=== PATIENT | female | born 1995 | race Caucasian/White ===

== ENCOUNTER 2016-12-01 17:46 | Emergency (ER) | payer MEDICAID, SELFPAY ==
[~2016-12-01 17:46] MED LIST: PRENTAB9 PO
[2016-12-01] MEDS ORDERED: AMOXICILLIN 250 MG CAP As Ordered ONE (19:37)
[2016-12-01] MEDS ORDERED: NORCO 5/325MG TABLET (BULK) As Ordered ONE (19:37)
--- NOTE | 2016-12-01 19:46 | EDDOCDS ---
Physician Documentation [facility] Name: Roxanne Palmer Age: 21 yrs Sex: Female : 1995 Arrival Date: 12/01/2016 Time: 17:46 Bed Triage 3 Private MD: No Pcp Disposition: 12/01/16 19:34 Discharged to Home/Self Care. Impression: Arrested dental caries. - Condition is Stable. - Discharge Instructions: Dental Abscess, Dental Pain. - Prescriptions for Amoxicillin 500 mg Oral Capsule - take 1 capsule by ORAL route every 8 hours for 10 days; 30 tablet. [place] 5- 325 mg Oral Tablet - take 1 tablet by ORAL route every 6 hours As needed MDD: 4 tabs; 12 tablet. - Medication Reconciliation, Local Pharmacy Hours form. - Follow up: Private Physician; When: Call to arrange an appointment; Reason: Recheck today's complaints, Continuance of care. Follow up: Tarik Merida MD; When: Call to arrange an appointment; Reason: Recheck today's complaints, Continuance of care. - Problem is an ongoing problem. - Symptoms are unchanged. Historical: - Allergies: No known drug Allergies; - Home Meds: 1. none - PMHx: concussion; - PSHx: none; - Social history: Smoking status: Patient uses tobacco products, light tobacco smoker. No barriers to communication noted, The patient speaks fluent Bengali, Speaks appropriately for age. - Family history: Not pertinent. - : The pt / caregiver states he / she is not on anticoagulants. Home medication list is obtained from the patient. - Exposure Risk Screening:: None identified. 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 3 in. (160.02 cm) (R); Pain 8/10; 17:49 Body Mass Index 21.26 (54.43 kg, 160.02 cm) gr2 MDM: 19:28 HYDROcodone-acetaminophen 4 pack- 5 mg-325 mg 1 packets PO Per package directions; mo1 Dispense with patient. 1 po q4h prn for pain ordered. 19:28 Amoxicillin 500 mg PO once ordered. mo1 19:42 Amoxicillin 500 mg PO once ordered. ttb Administered Medications: 19:41 Drug: HYDROcodone-acetaminophen 4 pack- 1 packets [hydrocodone 5 mg-acetaminophen 325 ttb mg tablet (1 tabs)] {Co-Signature: kmg1 (Chrystal Roblero RN).} Route: PO; 19:44 Follow up: Response: Med's dispensed home ttb 19:42 Drug: Amoxicillin 500 mg [amoxicillin 250 mg capsule (2 caps)] Route: PO; ttb Signatures: Smiley Ann RN RN hs1 Latanya Garcia RN RN ttb Yefri Ramirez PA PA mo1 Chrystal Roblero RN kmg1 MTDD
--- NOTE | 2016-12-01 19:46 | EDDOCDS ---
Nurse's Notes [facility] Name: Roxanne Palmer Age: 21 yrs Sex: Female : 1995 Arrival Date: 12/01/2016 Time: 17:46 Bed Triage 3 Private MD: No Pcp Diagnosis: Arrested dental caries Presentation: 12/01 17:52 Presenting complaint: Patient states: dentist called and stated that patient needed to hs1 come in and be seen for infection in tooth now spreading to down neck. Patient states left side of face and neck bothersome. Adult Sepsis Screening: The patient does not have new or worsening altered mentation. Patient's respiratory rate is less than 22. Systolic blood pressure is greater than 100. Patient has a qSOFA score of 0- Negative Sepsis Screen. Suicide/Homicide risk assessment- the patient denies having any suicidal and/or homicidal ideations and does not present with any other emotional, behavioral or mental health complaints. Status: Patient is not a park services specialist or dependent. Transition of care: patient was not received from another setting of care. 17:52 Method Of Arrival: Walkin/Carried/Asstd hs1 17:52 Acuity: MAXIMO Level 4 hs1 Triage Assessment: 17:54 General: Appears in no apparent distress, Behavior is anxious, cooperative. Pain: hs1 Location: mouth, chin and left jaw Pain currently is 8 out of 10 on a pain scale. Pain: Quality of pain is described as throbbing. HIV screening NA for this visit Offered previously. 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 none - PMHx: concussion; - PSHx: none; - Social history: Smoking status: Patient uses tobacco products, light tobacco smoker. No barriers to communication noted, The patient speaks fluent Sami, Speaks appropriately for age. - Family history: Not pertinent. - : The pt / caregiver states he / she is not on anticoagulants. Home medication list is obtained from the patient. - Exposure Risk Screening:: None identified. Screenin:42 Screening information is obtained from the patient. Fall risk: No risks identified. ttb Assistance ADL's: requires no assistance with activities of daily living. Abuse/DV Screen: The patient / caregiver reports he/she is: not in a situation that causes fear, pain or injury. Nutritional screening: No deficits noted. Advance Directives: Currently, there is no health care proxy. home support is adequate. Assessment: 19:42 General: Appears uncomfortable, well nourished, well groomed, Behavior is appropriate ttb for age, cooperative, crying, pleasant. Neurological: Level of Consciousness is awake, alert. Respiratory: Airway is patent Respiratory effort is even, unlabored, Denies labored breathing. Derm: Skin is normal. Vital Signs: 17:49 BP 129 / 90; Pulse 94; Resp 18 S; Temp 98.5(O); Pulse Ox 100% on R/A; Weight 54.43 kg gr2 (R); Height 5 ft. 3 in. (160.02 cm) (R); Pain 8/10; 17:49 Body Mass Index 21.26 (54.43 kg, 160.02 cm) gr2 Vitals: 17:49 Log In Time: December 01, 2016 at 17:49. gr2 ED Course: 17:48 Patient visited by Ayden Randall. gr2 17:48 Patient moved to Waiting gr2 17:49 No Pcp is Private Physician. gr2 17:51 Patient visited by Ayden Randall. gr2 17:51 Patient moved to Pre RCE gr2 17:53 Triage Initiated hs1 19:03 Patient moved to Triage 3 mlb1 19:15 Yefri Ramirez PA is PHCP. mo1 19:15 Kaley Keating MD is Attending Physician. mo1 19:21 Patient visited by Yefri Ramirez PA. mo1 19:35 Tarik Merida MD is Referral Physician. mo1 19:42 The patient / caregiver is instructed regarding the plan of care and ED course. ttb Accompanied by Family Member, Patient has correct armband on for positive identification. 19:42 No IV's were initiated during this patient's visit. No procedures done that require ttb assistance. Administered Medications: 19:41 Drug: HYDROcodone-acetaminophen 4 pack- 1 packets [hydrocodone 5 mg-acetaminophen 325 ttb mg tablet (1 tabs)] {Co-Signature: kmg1 (Chrystal Roblero RN).} Route: PO; 19:44 Follow up: Response: Med's dispensed home ttb 19:42 Drug: Amoxicillin 500 mg [amoxicillin 250 mg capsule (2 caps)] Route: PO; ttb Order Results: There are currently no results for this order. Outcome: 19:34 Discharge ordered by Provider. mo1 19:42 Discharge Assessment: Patient awake, alert and oriented x 3. No cognitive and/or ttb functional deficits noted. Patient verbalized understanding of disposition instructions. Patient awake and alert. patient administered narcotics - no. The following High Risk Discharge criteria are identified: None. Discharged to home ambulatory, with family. Condition: good Condition: stable Condition: improved. Discharge instructions given to patient, family, Instructed on discharge instructions, follow up and referral plans. medication usage, no driving heavy equipment, no drinking with medication, Demonstrated understanding of instructions, medications, Pt was receptive of discharge instructions/ teaching. Prescriptions given X 2, meds dispensed as well. No special radiology studies were completed. Property :Personal belongings accompany Pt. 19:44 Patient left the ED. ttb Signatures: Yefri James RN RN mlb1 Smiley Ann RN RN hs1 Latanya Garcia RN RN ttb Ayden Randall 2 Yefri Ramirez PA PA mo1 Chrystal Roblero RN kmg1 MTDD
--- NOTE | 2016-12-03 20:46 | EDDOCDS ---
Physician Documentation [facility] Name: Roxanne Palmer Age: 21 yrs Sex: Female : 1995 Arrival Date: 12/01/2016 Time: 17:46 Bed Triage 3 Private MD: No Pcp Disposition: 12/01/16 19:34 Discharged to Home/Self Care. Impression: Arrested dental caries. - Condition is Stable. - Discharge Instructions: Dental Abscess, Dental Pain. - Prescriptions for Amoxicillin 500 mg Oral Capsule - take 1 capsule by ORAL route every 8 hours for 10 days; 30 tablet. [place] 5- 325 mg Oral Tablet - take 1 tablet by ORAL route every 6 hours As needed MDD: 4 tabs; 12 tablet. - Medication Reconciliation, Local Pharmacy Hours form. - Follow up: Private Physician; When: Call to arrange an appointment; Reason: Recheck today's complaints, Continuance of care. Follow up: Tarik Merida MD; When: Call to arrange an appointment; Reason: Recheck today's complaints, Continuance of care. - Problem is an ongoing problem. - Symptoms are unchanged. Historical: - Allergies: No known drug Allergies; - Home Meds: 1. none - PMHx: concussion; - PSHx: none; - Social history: Smoking status: Patient uses tobacco products, light tobacco smoker. No barriers to communication noted, The patient speaks fluent Belarusian, Speaks appropriately for age. - Family history: Not pertinent. - : The pt / caregiver states he / she is not on anticoagulants. Home medication list is obtained from the patient. - Exposure Risk Screening:: None identified. 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 3 in. (160.02 cm) (R); Pain 8/10; 17:49 Body Mass Index 21.26 (54.43 kg, 160.02 cm) gr2 MDM: 19:28 HYDROcodone-acetaminophen 4 pack- 5 mg-325 mg 1 packets PO Per package directions; mo1 Dispense with patient. 1 po q4h prn for pain ordered. 19:28 Amoxicillin 500 mg PO once ordered. mo1 19:42 Amoxicillin 500 mg PO once ordered. ttb 19:46 [facility] Payment Agreement was scanned into [employer] and attached to record. zo 19:46 Financial registration complete. zo 12/02 09:22 T-Sheet-- Draft Copy was scanned into [employer] and attached to record. gb Administered Medications: 12/01 19:41 Drug: HYDROcodone-acetaminophen 4 pack- 1 packets [hydrocodone 5 mg-acetaminophen 325 ttb mg tablet (1 tabs)] {Co-Signature: kmg1 (Chrystal Roblero RN).} Route: PO; 19:44 Follow up: Response: Med's dispensed home ttb 19:42 Drug: Amoxicillin 500 mg [amoxicillin 250 mg capsule (2 caps)] Route: PO; ttb Signatures: Tsering Ferguson, Marvel Reg Jarrod Pascal Hannah, RN RN hs1 Latanya Garcia RN RN ttb Yefri Ramirez PA PA mo1 Chrystal Roblero RN kmg1 The chart was reviewed and I authenticate all verbal orders and agree with the evaluation and treatment provided.Attachments: 19:46 [facility] Payment Agreement zo 12/02 09:22 T-Sheet-- Draft Copy gb Chart Complete MTDD
--- NOTE | 2016-12-03 20:46 | EDDOCDS ---
Physician Documentation [facility] Name: Roxanne Palmer Age: 21 yrs Sex: Female : 1995 Arrival Date: 12/01/2016 Time: 17:46 Bed Triage 3 Private MD: No Pcp Disposition: 12/01/16 19:34 Discharged to Home/Self Care. Impression: Arrested dental caries. - Condition is Stable. - Discharge Instructions: Dental Abscess, Dental Pain. - Prescriptions for Amoxicillin 500 mg Oral Capsule - take 1 capsule by ORAL route every 8 hours for 10 days; 30 tablet. [place] 5- 325 mg Oral Tablet - take 1 tablet by ORAL route every 6 hours As needed MDD: 4 tabs; 12 tablet. - Medication Reconciliation, Local Pharmacy Hours form. - Follow up: Private Physician; When: Call to arrange an appointment; Reason: Recheck today's complaints, Continuance of care. Follow up: Tarik Merida MD; When: Call to arrange an appointment; Reason: Recheck today's complaints, Continuance of care. - Problem is an ongoing problem. - Symptoms are unchanged. Historical: - Allergies: No known drug Allergies; - Home Meds: 1. none - PMHx: concussion; - PSHx: none; - Social history: Smoking status: Patient uses tobacco products, light tobacco smoker. No barriers to communication noted, The patient speaks fluent Latvian, Speaks appropriately for age. - Family history: Not pertinent. - : The pt / caregiver states he / she is not on anticoagulants. Home medication list is obtained from the patient. - Exposure Risk Screening:: None identified. 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 3 in. (160.02 cm) (R); Pain 8/10; 17:49 Body Mass Index 21.26 (54.43 kg, 160.02 cm) gr2 MDM: 19:28 HYDROcodone-acetaminophen 4 pack- 5 mg-325 mg 1 packets PO Per package directions; mo1 Dispense with patient. 1 po q4h prn for pain ordered. 19:28 Amoxicillin 500 mg PO once ordered. mo1 19:42 Amoxicillin 500 mg PO once ordered. ttb 19:46 [facility] Payment Agreement was scanned into [employer] and attached to record. zo 19:46 Financial registration complete. zo 12/02 09:22 T-Sheet-- Draft Copy was scanned into [employer] and attached to record. gb Administered Medications: 12/01 19:41 Drug: HYDROcodone-acetaminophen 4 pack- 1 packets [hydrocodone 5 mg-acetaminophen 325 ttb mg tablet (1 tabs)] {Co-Signature: kmg1 (Chrystal Roblero RN).} Route: PO; 19:44 Follow up: Response: Med's dispensed home ttb 19:42 Drug: Amoxicillin 500 mg [amoxicillin 250 mg capsule (2 caps)] Route: PO; ttb Signatures: Tsering Ferguson, Marvel Reg Jarrod Pascal Hannah, RN RN hs1 Latanya Garcia RN RN ttb Yefri Ramirez PA PA mo1 Chrystal Roblero RN kmg1 The chart was reviewed and I authenticate all verbal orders and agree with the evaluation and treatment provided.Attachments: 19:46 [facility] Payment Agreement zo 12/02 09:22 T-Sheet-- Draft Copy gb Chart Complete MTDD
== END 2016-12-01 19:44 | disposition home or self-care (01) ==
LOC: M ED 17:46
DX: K04.7 Periapical abscess without sinus (principal); K13.79 Other lesions of oral mucosa; R22.0 Localized swelling, mass and lump, head; F17.210 Nicotine dependence, cigarettes, uncomplicated

== ENCOUNTER 2017-03-04 22:18 | Emergency (ER) | payer MEDICAID, SELFPAY ==
[2017-03-05 01:27] LABS: METHADONE URINE NEGATIVE (NEGATIVE)
== END 2017-03-05 | disposition left against medical advice (07) ==
LOC: EDSEX 22:18 → EDBD 22:18 → M ED 03-05 01:08
DX: S00.91XA Abrasion of unspecified part of head, initial encounter (principal); Y04.8XXA Assault by other bodily force, initial encounter; Y92.89 Other specified places as the place of occurrence of the external cause; Y93.89 Activity, other specified; Y99.8 Other external cause status

== ENCOUNTER 2017-03-05 13:26 | Emergency (ER) | payer OTHER, SELFPAY ==
[~2017-03-05] VITALS: Ht 157.5 cm; Wt 56.7 kg
[2017-03-05 14:49] LABS: BASO % 0.3 % (0.0-1.0); EOS # 0.2 K/mm3 (0.0-0.50); LARGE UNSTAINED CELL # 0.1 K/mm3 (0.0-0.4); LARGE UNSTAINED CELL % 1.8 % (0.0-4.0); LYMPH # 1.3 K/mm3 (1.5-6.5); LYMPH % 31.9 % (24.0-44.0); MEAN CORPUSCULAR HEMOGLOBIN 26.8 pg (27.0-33.0); MEAN CORPUSCULAR HGB CONC 31.7 g/dl (32.0-36.5); MEAN CORPUSCULAR VOLUME 84.5 fl (80.0-96.0); MONO # 0.3 K/mm3 (0.0-0.8); MONO % 8.1 % (0.0-5.0); NEUTROPHILS # 2.2 K/mm3 (1.8-7.7); NEUTROPHILS % 52.9 % (36.0-66.0); PLATELET COUNT, AUTOMATED 262 k/mm3 (150-450); RED CELL DISTRIBUTION WIDTH 15.4 % (11.5-14.5); WHITE BLOOD COUNT 4.1 K/mm3 (4.0-10.0)
[2017-03-05 15:03] LABS: CONTROL LINE HCG INT CTR LINE PRESENT
[2017-03-05 15:12] LABS: ALBUMIN 4.3 GM/DL (3.2-5.2); ALBUMIN/GLOBULIN RATIO 1.43 (1.00-1.93); ALKALINE PHOSPHATASE 56 U/L (45-117); ALT/SGPT 24 U/L (12-78); ANION GAP 8 MEQ/L (8-16); AST/SGOT 24 U/L (15-37); BILIRUBIN,TOTAL 0.8 MG/DL (0.2-1.0); BLOOD UREA NITROGEN 12 MG/DL (7-18); CALCIUM LEVEL 8.6 MG/DL (8.5-10.1); CARBON DIOXIDE LEVEL 27 MEQ/L (21-32); CHLORIDE LEVEL 108 MEQ/L (98-107); CREATININE FOR GFR 0.82 MG/DL (0.55-1.02); GLOMERULAR FILTRATION RATE > 60.0 (>60); GLUCOSE, FASTING 74 MG/DL (70-105); POTASSIUM SERUM 4.3 MEQ/L (3.5-5.1); SODIUM LEVEL 143 MEQ/L (136-145); TOTAL PROTEIN 7.3 GM/DL (6.4-8.2)
[2017-03-05 15:27] LABS: CONTROL LINE INT CTR LINE PRESENT; HIV SCRN NEGATIVE (NEGATIVE); HIV SCRN1 NEGATIVE (NEGATIVE)
[2017-03-05] MEDS ORDERED: TETANUS IMMUNE GLOBULIN (HUMAN) 250 UNITS/ML SYRINGE (J1670)(90389) IM ONE (16:00)
[2017-03-05] MEDS ORDERED: cefTRIAXone SOD 250 MG VIAL (J0696) IM ONE (16:00)
[2017-03-05] MEDS ORDERED: AZITHROMYCIN 250 MG TAB PO ONE (16:00)
[2017-03-05] MEDS ORDERED: metroNIDAZOLE (FLAGYL) 500 MG TAB PO ONE (16:00)
[2017-03-05] MEDS ORDERED: EXPOSURE KIT-ADULT 7 DAY SUPPLY PO ONE (16:00)
[2017-03-05] MEDS ORDERED: DOXYCYCLINE HYCLATE 100 MG TAB PO ONE (16:00)
[2017-03-05] MEDS ORDERED: [UNRECOGNIZED DRUG - OTHER] IM ONE (16:00)
[2017-03-05] MEDS ORDERED: OVRAL-28 TABLET PO ONE (16:30)
[2017-03-05] MEDS ORDERED: ISOVUE-370 76% 100ML VIAL (Q9967) As Ordered ONE (16:38)
[2017-03-05] MEDS ORDERED: ONDANSETRON 4MG/2ML VIAL (J2405) IV ONE (16:45)
--- NOTE | 2017-03-05 17:40 | REPUSA ---
CLINICAL HISTORY: Abdominal pain. TECHNIQUE: Multiple axial, sagittal and coronal CT images were obtained through the abdomen and pelvi s after administration of intravenous contrast material. COMMENTS: The liver is of uniform attenuation without mass or defect. There is no intra or extrahepatic biliary ductal dilatation. The spleen is normal. The gallbladder is within normal limits. The pancreas is of normal contour and attenuation characteristics. There is no evidence of adrenal mass. Both kidneys demonstrate prompt and equal nephrograms. The kidneys are normal in size, shape and conf iguration. There is no evidence of renal or ureteral mass. No renal or ureteral calculi are identifie d. There is no hydroureter or hydronephrosis. No evidence for appendicitis. There is wall thickening noted involving duodenum and jejunum compati ble wiith enteritis. No evidence for small or large bowel obstruction. There is no evidence of abdomi nal ascites or lymphadenopathy. There is no evidence of intrinsic or extrinsic bladder mass. There is no pelvic ascites or lymphadeno quin. 15 mm right ovarian cyst is seen. The uterus and left ovary are unremarkable. Images of the lung bases show no evidence of pleural or parenchymal mass. There are no pleural effusi ons. The bony structures are free of lytic or blastic lesions. IMPRESSION: Enteritis as above. Infectious and inflammatory etiologies are considered. Consider GI consult. 15 mm right ovarian cyst. Thank you for your kind referral of this patient.
[2017-03-05 18:58] VITALS: BP 98/63
--- NOTE | 2017-03-06 06:45 | REP ---
CT BRAIN WITHOUT CONTRAST: CT brain is performed without IV contrast. Ventricles are normal in size and position. There is no midline shift. No abnormal densities are seen. Aguayo-white differentiation is well maintained. There is no acute hemorrhage. There is no extra-axial fluid collection. No skull fracture is seen. IMPRESSION: Negative noncontrast CT brain. Signed by Charles Aguayo MD 03/06/2017 07:49 P
--- NOTE | 2017-03-06 07:22 | REP ---
LUMBOSACRAL SPINE: Two views of the lumbosacral spine are performed in the AP and lateral projections. There is no compression fracture or malalignment with normal lumbar lordosis. Disc spaces are well preserved. Posterior elements are intact. IMPRESSION: No evidence of fracture or dislocation. Signed by Charles Aguayo MD 03/06/2017 07:51 P
--- NOTE | 2017-03-06 07:24 | REP ---
RIGHT HIP, TWO VIEWS: There is no evidence of an acute fracture, dislocation or intrinsic bone disease. IMPRESSION: No fracture or dislocation. Signed by Charles Aguayo MD 03/06/2017 07:51 P
--- NOTE | 2017-03-06 07:26 | REP ---
CERVICAL SPINE, TWO VIEWS: AP and lateral views of the cervical spine are performed and demonstrate no definite fracture or dislocation. Vertebral bodies are normal in height and are well aligned. There is no prevertebral soft tissue swelling. Disc spaces are well preserved. IMPRESSION: Grossly no fracture or dislocation. However, if there is clinical concern for cervical spine fracture, I would recommend a CT of the cervical spine to rule out occult fracture. Signed by Charles Aguayo MD 03/06/2017 07:51 P
[2017-03-07 10:26] LABS: HEPATITIS B SURFACE ANTIBODY NEGATIVE (POSITIVE)
== END 2017-03-05 19:39 | disposition home or self-care (01) ==
LOC: M ED 14:44
DX: S00.91XA Abrasion of unspecified part of head, initial encounter (principal); S70.01XA Contusion of right hip, initial encounter; S30.810A Abrasion of lower back and pelvis, initial encounter; S70.319A Abrasion, unspecified thigh, initial encounter; S10.91XA Abrasion of unspecified part of neck, initial encounter; M54.5 Low back pain; Y04.8XXA Assault by other bodily force, initial encounter; Y92.89 Other specified places as the place of occurrence of the external cause; Y93.89 Activity, other specified; Y99.8 Other external cause status; F32.9 Major depressive disorder, single episode, unspecified; F17.200 Nicotine dependence, unspecified, uncomplicated
CPT/HCPCS: 70450; 72040; 72100; 73502; 74177; 80053; 84703; 85025; 86706; 86780; 86803; 87070; 87210; 87340; 87491; 87591; 87806; 90471; 90472; 90744; 96372; 96374; 99282; J0696; J1670; J2405; Q9967

== ENCOUNTER → 2017-07-08 | Outpatient (REF) | LOC: M LAB 10:15 | PROVIDERS: ATTEND Nurse Practitioner Adult Health | DX: Z02.89 Encounter for other administrative examinations (principal) ==

== ENCOUNTER 2017-07-30 01:56 | Emergency (ER) | payer OTHER ==
[2017-07-30] MEDS ORDERED: NALOXONE INJ 2 MG/2 ML SYRINGE (J2310) IV STA (02:25)
[2017-07-30] MEDS ORDERED: NALOXONE INJ 2 MG/2 ML SYRINGE (J2310) As Ordered ONE (02:28)
[2017-07-30 02:46] LABS: ABG HCO3 19.3 MEQ/L (22.0-26.0); ABG PARTIAL PRESSURE CO2 33.4 mmHg (35.0-45.0); ABG STANDARD HCO3 20.3 MEQ/L (22.0-26.0); ABG TOTAL CO2 20.3 MEQ/L (22.0-29.0); ABG pH (ARTERIAL) 7.379 UNITS (7.350-7.450)
[2017-07-30 02:47] LABS: ANION GAP 7 MEQ/L (8-16); BLOOD UREA NITROGEN 5 MG/DL (7-18); CALCIUM LEVEL 8.6 MG/DL (8.5-10.1); CARBON DIOXIDE LEVEL 27 MEQ/L (21-32); CHLORIDE LEVEL 113 MEQ/L (98-107); CREATININE FOR GFR 0.68 MG/DL (0.55-1.02); GLOMERULAR FILTRATION RATE > 60.0 (>60); GLUCOSE, FASTING 88 MG/DL (70-105); POTASSIUM SERUM 3.9 MEQ/L (3.5-5.1); SODIUM LEVEL 147 MEQ/L (136-145)
[2017-07-30 03:52] LABS: METHADONE URINE NEGATIVE (NEGATIVE)
[2017-07-30 05:42] VITALS: BP 93/55
--- NOTE | 2017-07-31 12:34 | ECGEPIP ---
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
== END 2017-07-30 06:06 | disposition home or self-care (01) ==
LOC: M ED 01:56
DX: F10.929 Alcohol use, unspecified with intoxication, unspecified (principal); F12.10 Cannabis abuse, uncomplicated
CPT/HCPCS: 51701; 80048; 80307; 80320; 80329; 82803; 93000; 96374; 99285; J2310

== ENCOUNTER 2017-12-15 00:39 | Emergency (ER) | payer SELFPAY, OTHER ==
[2017-12-15 01:31] LABS: HEMATOCRIT 39.9 % (36.0-47.0); MEAN CORPUSCULAR HEMOGLOBIN 27.2 pg (27.0-33.0); MEAN CORPUSCULAR HGB CONC 32.6 g/dl (32.0-36.5); MEAN CORPUSCULAR VOLUME 83.5 fl (80.0-96.0); PLATELET COUNT, AUTOMATED 294 10^3/uL (150-450); RED BLOOD COUNT 4.78 10^6/uL (4.00-5.40); RED CELL DISTRIBUTION WIDTH 15.6 % (11.5-14.5); WHITE BLOOD COUNT 6.7 10^3/uL (4.0-10.0)
[2017-12-15 01:51] LABS: AMPHETAMINES LEVEL URINE NEGATIVE (NEGATIVE); BARBITURATES URINE NEGATIVE (NEGATIVE); BENZODIAZEPINES URINE NEGATIVE (NEGATIVE); CANNABINOIDS URINE POSITIVE (NEGATIVE); COCAINE METABOLITE URINE NEGATIVE (NEGATIVE); METHADONE URINE NEGATIVE (NEGATIVE); OPIATES URINE NEGATIVE (NEGATIVE); PHENCYCLIDINE URINE NEGATIVE (NEGATIVE)
[2017-12-15] MEDS: diphenhydrAMINE INJ 50MG/ML VIAL (J1200) IM (02:00)
[2017-12-15] MEDS: LORazepam 2 MG/ML VIAL (J2060) IM (02:00)
[2017-12-15] MEDS: HALOPERIDOL 5 MG/ML VIAL (J1630) IM (02:00)
[2017-12-15 03:06] LABS: ALBUMIN 4.5 GM/DL (3.2-5.2); ALBUMIN/GLOBULIN RATIO 1.36 (1.00-1.93); ALKALINE PHOSPHATASE 51 U/L (45-117); ALT/SGPT 18 U/L (12-78); ANION GAP 14 MEQ/L (8-16); AST/SGOT 19 U/L (7-37); BILIRUBIN,DIRECT < 0.1 MG/DL (0.0-0.2); BILIRUBIN,TOTAL 0.3 MG/DL (0.2-1.0); BLOOD UREA NITROGEN 5 MG/DL (7-18); CALCIUM LEVEL 8.9 MG/DL (8.5-10.1); CARBON DIOXIDE LEVEL 20 MEQ/L (21-32); CHLORIDE LEVEL 111 MEQ/L (98-107); CREATININE FOR GFR 0.78 MG/DL (0.55-1.30); ETHYL ALCOHOL (ETHANOL) 0.184 % (0.000-0.010); GLOMERULAR FILTRATION RATE > 60.0 (>60); GLUCOSE, FASTING 89 MG/DL (70-100); POTASSIUM SERUM 3.5 MEQ/L (3.5-5.1); SALICYLATE LEVEL < 1.7 MG/DL (5.0-30.0); SODIUM LEVEL 145 MEQ/L (136-145); THYROID STIMULATING HORMONE 0.947 uIU/ML (0.358-3.740); TOTAL PROTEIN 7.8 GM/DL (6.4-8.2)
[2017-12-15 03:07] LABS: ACETAMINOPHEN LEVEL < 2.0 UG/ML (10.0-30.0)
[2017-12-15 11:34] LABS: CONTROL LINE HCG INT CTR LINE PRESENT; HCG, SERUM QUALITATIVE NEGATIVE (NEGATIVE)
== END 2017-12-15 13:01 | disposition home or self-care (01) ==
LOC: M ED 00:39
DX: Z04.6 Encounter for general psychiatric examination, requested by authority (principal); F10.929 Alcohol use, unspecified with intoxication, unspecified
CPT/HCPCS: J1200

== ENCOUNTER 2018-04-08 15:50 | Emergency (ER) | payer SELFPAY ==
[2018-04-08 17:52] LABS: HEMATOCRIT 40.3 % (36.0-47.0); HEMOGLOBIN 13.2 g/dl (12.0-15.5); MEAN CORPUSCULAR HEMOGLOBIN 28.6 pg (27.0-33.0); MEAN CORPUSCULAR HGB CONC 32.8 g/dl (32.0-36.5); MEAN CORPUSCULAR VOLUME 87.4 fl (80.0-96.0); PLATELET COUNT, AUTOMATED 256 10^3/uL (150-450); RED BLOOD COUNT 4.61 10^6/uL (4.00-5.40); RED CELL DISTRIBUTION WIDTH 14.5 % (11.5-14.5)
[2018-04-08] MEDS: ONDANSETRON 4MG/2ML VIAL (J2405) IV (18:02)
[2018-04-08] MEDS: MORPHINE 2 MG/ML 1ML SYRINGE (J2270) IV ×2 (18:02→19:19)
[2018-04-08 18:12] LABS: ANION GAP 7 MEQ/L (8-16); BLOOD UREA NITROGEN 11 MG/DL (7-18); CALCIUM LEVEL 8.9 MG/DL (8.5-10.1); CARBON DIOXIDE LEVEL 27 MEQ/L (21-32); CHLORIDE LEVEL 108 MEQ/L (98-107); CREATININE FOR GFR 0.68 MG/DL (0.55-1.30); GLOMERULAR FILTRATION RATE > 60.0 (>60); GLUCOSE, FASTING 79 MG/DL (70-100); POTASSIUM SERUM 4.3 MEQ/L (3.5-5.1); SODIUM LEVEL 142 MEQ/L (136-145)
[2018-04-08] MEDS ORDERED: ISOVUE-370 76% 100ML VIAL (Q9967) As Ordered (18:19)
== END 2018-04-08 19:54 | disposition home or self-care (01) ==
LOC: M ED 15:50
DX: L03.211 Cellulitis of face (principal); F41.9 Anxiety disorder, unspecified; F33.9 Major depressive disorder, recurrent, unspecified; F17.210 Nicotine dependence, cigarettes, uncomplicated
CPT/HCPCS: J2405

== ENCOUNTER 2018-05-14 17:18 | Emergency (ER) | payer SELFPAY ==
[2018-05-14] MEDS: PENICILLIN V POTASSIUM 500 MG TAB PO (18:24)
[2018-05-14] MEDS: NORCO 5/325MG TABLET (BULK FOR ED) PO (18:24)
== END 2018-05-14 18:31 | disposition home or self-care (01) ==
LOC: M ED 17:18
DX: K04.7 Periapical abscess without sinus (principal); R68.84 Jaw pain; F17.200 Nicotine dependence, unspecified, uncomplicated
CPT/HCPCS: 99282

== ENCOUNTER 2018-08-18 14:26 | Emergency (ER) | payer SELFPAY | END 2018-08-18 16:14 | disposition home or self-care (01) | LOC: M ED 14:26 | DX: M25.531 Pain in right wrist (principal); F41.9 Anxiety disorder, unspecified; F32.9 Major depressive disorder, single episode, unspecified; F17.200 Nicotine dependence, unspecified, uncomplicated | CPT/HCPCS: 73110 ==

== ENCOUNTER 2018-09-01 19:31 | Emergency (ER) | payer SELFPAY ==
[2018-09-01 19:43] LABS: BEDSIDE GLUCOSE 71 MG/DL (70-105)
[2018-09-01] MEDS: DEXTROSE 50% 50 ML SYRINGE IV ×2 (19:43→20:58)
[2018-09-01] MEDS ORDERED: DEXTROSE 50% 50 ML SYRINGE As Ordered (19:43)
[2018-09-01] MEDS: GASTROGRAFIN SOLUTION 30ML PO ×2 (20:22→21:00)
[2018-09-01 20:27] LABS: BASO % 0.5 % (0.0-1.0); EOS # 0.2 10^3/uL (0.0-0.50); EOS % 2.4 % (0.0-3.0); HEMATOCRIT 37.6 % (36.0-47.0); HEMOGLOBIN 12.5 g/dl (12.0-15.5); IMMATURE GRANULOCYTE % 0.3 % (0-3.0); LYMPH # 2.1 10^3/uL (1.5-6.5); LYMPH % 28.1 % (24.0-44.0); MEAN CORPUSCULAR HEMOGLOBIN 29.3 pg (27.0-33.0); MEAN CORPUSCULAR HGB CONC 33.2 g/dl (32.0-36.5); MEAN CORPUSCULAR VOLUME 88.3 fl (80.0-96.0); MONO # 0.8 10^3/uL (0.0-0.8); NEUTROPHILS # 4.4 10^3/uL (1.8-7.7); NEUTROPHILS % 58.7 % (36.0-66.0); PLATELET COUNT, AUTOMATED 219 10^3/uL (150-450); RED BLOOD COUNT 4.26 10^6/uL (4.00-5.40); RED CELL DISTRIBUTION WIDTH 13.8 % (11.5-14.5); WHITE BLOOD COUNT 7.5 10^3/uL (4.0-10.0)
[2018-09-01 20:36] LABS: AMORPHOUS SEDIMENT RFX SMALL (NEGATIVE); KETONE, URINE AUTO RFX NEGATIVE (NEGATIVE); LEUKOCYTE ESTERASE UR AUTO RFX NEGATIVE (NEGATIVE); MUCUS, URINE RFX SMALL (NEGATIVE); NITRITE, URINE AUTO RFX NEGATIVE (NEGATIVE); RBC, URINE AUTO RFX 3 /HPF (0-3); SPECIFIC GRAVITY UR AUTO RFX 1.021 (1.002-1.035); SQUAM EPITHELIAL CELL UR AURFX 4 /HPF (0-6); WBC, URINE AUTO RFX 3 /HPF (0-3)
[2018-09-01 20:41] LABS: CONTROL LINE HCG INT CTR LINE PRESENT; HCG, SERUM QUALITATIVE NEGATIVE (NEGATIVE)
[2018-09-01 20:50] LABS: LACTIC ACID SEPSIS PROTOCOL 1.8 MMOL/L (0.4-2.0)
[2018-09-01 20:50] LABS: ALBUMIN 3.9 GM/DL (3.2-5.2); ALBUMIN/GLOBULIN RATIO 1.44 (1.00-1.93); ALKALINE PHOSPHATASE 42 U/L (45-117); ALT/SGPT 20 U/L (12-78); ANION GAP 8 MEQ/L (8-16); AST/SGOT 16 U/L (7-37); BILIRUBIN,DIRECT 0.2 MG/DL (0.0-0.2); BILIRUBIN,TOTAL 0.5 MG/DL (0.2-1.0); BLOOD UREA NITROGEN 11 MG/DL (7-18); CALCIUM LEVEL 8.5 MG/DL (8.5-10.1); CARBON DIOXIDE LEVEL 24 MEQ/L (21-32); CHLORIDE LEVEL 109 MEQ/L (98-107); CREATININE FOR GFR 0.73 MG/DL (0.55-1.30); ETHYL ALCOHOL (ETHANOL) < 0.003 % (0.000-0.010); GLOMERULAR FILTRATION RATE > 60.0 (>60); GLUCOSE, FASTING 59 MG/DL (70-100); LIPASE 395 U/L (73-393); POTASSIUM SERUM 3.9 MEQ/L (3.5-5.1); SODIUM LEVEL 141 MEQ/L (136-145); TOTAL PROTEIN 6.6 GM/DL (6.4-8.2)
[2018-09-01 20:52] LABS: BEDSIDE GLUCOSE 54 MG/DL (70-105)
[2018-09-01 20:54] LABS: BEDSIDE GLUCOSE 69 MG/DL (70-105)
[2018-09-01] MEDS: D5W/0.45% SODIUM CHLORIDE 1,000 ML IV (20:59)
[2018-09-01 21:07] LABS: AMPHETAMINES LEVEL URINE NEGATIVE (NEGATIVE); BARBITURATES URINE NEGATIVE (NEGATIVE); BENZODIAZEPINES URINE POSITIVE (NEGATIVE); CANNABINOIDS URINE POSITIVE (NEGATIVE); COCAINE METABOLITE URINE NEGATIVE (NEGATIVE); METHADONE URINE NEGATIVE (NEGATIVE); OPIATES URINE NEGATIVE (NEGATIVE); PHENCYCLIDINE URINE NEGATIVE (NEGATIVE)
[2018-09-01 21:41] LABS: BEDSIDE GLUCOSE 102 MG/DL (70-105)
[2018-09-01] MEDS ORDERED: ISOVUE-370 76% 100ML VIAL (Q9967) As Ordered (21:41)
[2018-09-01 21:57] LABS: ESTIMATED AVERAGE GLUCOSE 97 MG/DL (60-110)
[2018-09-01 23:03] LABS: BEDSIDE GLUCOSE 111 MG/DL (70-105)
[2018-09-01 23:53] LABS: BEDSIDE GLUCOSE 97 MG/DL (70-105)
== END 2018-09-02 00:25 | disposition home or self-care (01) ==
LOC: M ED 09-02 00:25
DX: F41.0 Panic disorder [episodic paroxysmal anxiety] (principal); E16.2 Hypoglycemia, unspecified; R11.2 Nausea with vomiting, unspecified
CPT/HCPCS: Q9963

== ENCOUNTER → 2018-12-27 | Outpatient (CLI) | payer OTHER ==
[~2018-12-27] MED LIST changes: +IBUP-1022 PO; +IBUP1TAB7 PO; +IBUP80TA PO; +KEFL500C17 PO; +NORCOTAB PO; +PENI500T PO; +ZOFR4TAB14 PO
--- NOTE | 2018-12-27 19:17 | REP ---
LEFT BREAST ULTRASOUND: Real time sonographic evaluation of the left breast was performed. Patient reports nipple discharge for 2 weeks which is clear to whitish in color. There is reportedly a palpable lump at 7 o'clock and 10 o'clock. Real-time sonographic evaluation of 7 and 10 o'clock regions demonstrate no cystic or solid nodule. The left retroareolar region is imaged as well. There are dilated ducts present with internal debris. No cystic or solid nodule is seen in that region. There is diffuse dense fibroglandular tissue. IMPRESSION: ACR 2 benign. No discrete cystic or solid mass in the left breast, particularly in the 7 o'clock and 10 o'clock regions where there are reportedly palpable abnormalities. There is no left retroareolar mass with scattered dilated ducts in this region containing debris. Electronically Signed by Charles Aguayo MD 12/28/2018 12:29 A
== END ==
LOC: M RAD 15:49
PROVIDERS: ATTEND Physician Assistant
DX: N64.52 Nipple discharge (principal)

== ENCOUNTER 2022-03-01 02:51 | Inpatient (IN) | payer OTHER, SELFPAY ==
[~2022-03-01] VITALS: Ht 157.5 cm; Wt 52.3 kg
[~2022-03-01 02:51] MED LIST changes: +HYDR-3715 PO; -NORCOTAB PO
[2022-03-01 03:13] LABS: HEMATOCRIT 39.6 % (36.0-47.0); HEMOGLOBIN 13.3 g/dl (12.0-15.5); MEAN CORPUSCULAR HEMOGLOBIN 30.5 pg (27.0-33.0); MEAN CORPUSCULAR HGB CONC 33.6 g/dl (32.0-36.5); MEAN CORPUSCULAR VOLUME 90.8 fl (80.0-96.0); PLATELET COUNT, AUTOMATED 218 10^3/uL (150-450); RED BLOOD COUNT 4.36 10^6/uL (4.00-5.40); WHITE BLOOD COUNT 9.7 10^3/uL (4.0-10.0)
[2022-03-01 03:39] LABS: HCG, SERUM QUALITATIVE NEGATIVE (NEGATIVE)
[2022-03-01 03:58] LABS: AMPHETAMINES LEVEL URINE NEGATIVE (NEGATIVE); BARBITURATES URINE NEGATIVE (NEGATIVE); BENZODIAZEPINES URINE POSITIVE (NEGATIVE); CANNABINOIDS URINE POSITIVE (NEGATIVE); COCAINE METABOLITE URINE NEGATIVE (NEGATIVE); METHADONE URINE NEGATIVE (NEGATIVE); OPIATES URINE NEGATIVE (NEGATIVE); PHENCYCLIDINE URINE NEGATIVE (NEGATIVE)
[2022-03-01 03:58] LABS: ACETAMINOPHEN LEVEL < 2.0 UG/ML (10.0-30.0); ALBUMIN 4.2 GM/DL (3.2-5.2); ALT/SGPT 17 U/L (12-78); BILIRUBIN,DIRECT 0.2 MG/DL (0.0-0.2); BILIRUBIN,TOTAL 0.5 MG/DL (0.2-1.0); BLOOD UREA NITROGEN 8 MG/DL (7-18); CALCIUM LEVEL 9.6 MG/DL (8.5-10.1); CARBON DIOXIDE LEVEL 25 MEQ/L (21-32); CHLORIDE LEVEL 109 MEQ/L (98-107); CREATININE FOR GFR 0.82 MG/DL (0.55-1.30); ETHYL ALCOHOL (ETHANOL) < 0.003 % (0.000-0.010); GLOMERULAR FILTRATION RATE > 60.0 (>60); GLUCOSE, FASTING 88 MG/DL (70-100); POTASSIUM SERUM 3.4 MEQ/L (3.5-5.1); SALICYLATE LEVEL < 1.7 MG/DL (5.0-30.0); SODIUM LEVEL 142 MEQ/L (136-145); TOTAL PROTEIN 7.5 GM/DL (6.4-8.2)
[2022-03-01] MEDS ORDERED: diphenhydrAMINE 50MG/ML VIAL (J1200) As Ordered ONE (14:35)
[2022-03-01] MEDS ORDERED: HALOPERIDOL 5MG/ML VIAL (J1630 PER 1) As Ordered ONE (14:35)
[2022-03-01] MEDS ORDERED: HALOPERIDOL 5MG/ML VIAL (J1630 PER 1) IM ONE (14:35)
[2022-03-01] MEDS ORDERED: LORazepam 2 MG/ML VIAL IM ONE (14:35)
[2022-03-01] MEDS ORDERED: diphenhydrAMINE 50MG/ML VIAL (J1200) IM ONE (14:35)
[2022-03-01] MEDS ORDERED: LORazepam 2 MG/ML VIAL As Ordered ONE (14:36)
[2022-03-01] MEDS ORDERED: HOME MED LIST COMPLETE! XX SCH (18:30)
[2022-03-01 23:27] LABS: RSV AMPLIFICATION NEGATIVE (NEGATIVE)
[2022-03-03] MEDS ORDERED: MAALOX 30 ML SUSP *UDC PO PRN (14:45)
[2022-03-03] MEDS ORDERED: MOM 30ML SUSPENSION UDC PO PRN (14:45)
[2022-03-03] MEDS ORDERED: OLANZapine ORAL DISINTEGRATING TAB 5MG PO PRN (14:45)
[2022-03-03 16:13] VITALS: BP 121/84
[2022-03-03] MEDS: traZODone 50 MG TAB PO PRN (21:58)
[2022-03-03] MEDS: ACETAMINOPHEN TAB 650MG DOSE (2X325MG) PO PRN (22:34)
[2022-03-04 06:43] VITALS: BP 99/52
[2022-03-04] MEDS: ACETAMINOPHEN TAB 650MG DOSE (2X325MG) PO PRN (09:34)
[2022-03-04 18:00] VITALS: BP 128/84
[2022-03-04] MEDS: traZODone 50 MG TAB PO PRN (21:48)
[2022-03-05 06:00] VITALS: BP 113/54
[2022-03-05] MEDS ORDERED: ZYPR5TAB31 PO (08:25)
[2022-03-05] MEDS ORDERED: TRAZ-252 PO (08:25)
== END 2022-03-05 11:42 | disposition home or self-care (01) | DRG 755 ==
LOC: M ED 02:51 → M ED INP 03-03 14:42 → M PSY 03-03 15:51
PROVIDERS: ADMIT Student in an Organized Health Care Education/Training Program; ATTEND Student in an Organized Health Care Education/Training Program
DX: F43.10 Post-traumatic stress disorder, unspecified (principal); F41.8 Other specified anxiety disorders; F17.290 Nicotine dependence, other tobacco product, uncomplicated; Z91.410 Personal history of adult physical and sexual abuse; Z87.891 Personal history of nicotine dependence; F12.10 Cannabis abuse, uncomplicated; K02.9 Dental caries, unspecified; R45.851 Suicidal ideations; Z20.822 Contact with and (suspected) exposure to COVID-19; F44.9 Dissociative and conversion disorder, unspecified; F60.3 Borderline personality disorder

== ENCOUNTER → 2022-07-14 | Outpatient (CLI) | payer MEDICAID, OTHER ==
[~2022-07-14] MED LIST changes: +TRAZ-252 PO; +ZYPR5TAB31 PO
[2022-07-14 17:36] LABS: HEMATOCRIT 36.8 % (36.0-47.0); MEAN CORPUSCULAR HEMOGLOBIN 29.9 pg (27.0-33.0); MEAN CORPUSCULAR HGB CONC 32.6 g/dl (32.0-36.5); MEAN CORPUSCULAR VOLUME 91.5 fl (80.0-96.0); PLATELET COUNT, AUTOMATED 255 10^3/uL (150-450); RED BLOOD COUNT 4.02 10^6/uL (4.00-5.40); WHITE BLOOD COUNT 8.8 10^3/uL (4.0-10.0)
[2022-07-14 19:05] LABS: HEPATITIS C VIRUS ABY INDEX < 0.0 INDEX (<0.8); HIV 1&2 SCREEN CENTAUR NEGATIVE (NEGATIVE)
[2022-07-14 19:23] LABS: GC DNA AMPLIFICATION NEGATIVE (NEGATIVE)
== END ==
LOC: M PLALAB 15:27
PROVIDERS: ATTEND Obstetrics & Gynecology
DX: Z34.81 Encounter for supervision of other normal pregnancy, first trimester (principal)

== ENCOUNTER → 2022-09-09 | Outpatient (CLI) | payer OTHER | LOC: M WHC 13:45 | PROVIDERS: ATTEND Obstetrics & Gynecology | DX: Z36.3 Encounter for antenatal screening for malformations (principal); Z3A.20 20 weeks gestation of pregnancy ==

== ENCOUNTER → 2022-11-19 | Outpatient (CLI) | payer OTHER ==
[2022-11-19 14:24] LABS: HEMATOCRIT 29.2 % (36.0-47.0); HEMOGLOBIN 9.4 g/dl (12.0-15.5); MEAN CORPUSCULAR HEMOGLOBIN 29.9 pg (27.0-33.0); MEAN CORPUSCULAR HGB CONC 32.2 g/dl (32.0-36.5); PLATELET COUNT, AUTOMATED 254 10^3/uL (150-450); RED BLOOD COUNT 3.14 10^6/uL (4.00-5.40); WHITE BLOOD COUNT 7.7 10^3/uL (4.0-10.0)
[2022-11-19 16:16] LABS: GC DNA AMPLIFICATION NEGATIVE (NEGATIVE)
== END ==
LOC: M PLALAB 11:21
PROVIDERS: ATTEND Obstetrics & Gynecology
DX: Z3A.28 28 weeks gestation of pregnancy (principal)

== ENCOUNTER → 2022-12-17 | Outpatient (CLI) | payer OTHER | LOC: M WHC 07:00 | PROVIDERS: ATTEND Obstetrics & Gynecology | DX: Z36.2 Encounter for other antenatal screening follow-up (principal); Z3A.33 33 weeks gestation of pregnancy ==

== ENCOUNTER → 2022-12-29 | Outpatient (REF) | payer OTHER, MEDICAID | LOC: M SFHCWAGY 13:14 | PROVIDERS: ATTEND Obstetrics & Gynecology | DX: Z34.93 Encounter for supervision of normal pregnancy, unspecified, third trimester (principal) ==

== ENCOUNTER 2023-01-26 11:31 | Inpatient (IN) | payer MEDICAID, OTHER ==
[2023-01-26] VITALS (30 sets, daily range): BP systolic 102–139; BP diastolic 57–85
[~2023-01-26] VITALS: Ht 157.5 cm; Wt 69.5 kg
[2023-01-26] MEDS ORDERED: PRENTAB9 PO (12:00)
[2023-01-26] MEDS ORDERED: LEXA1TAB PO (12:00)
[2023-01-26] MEDS ORDERED: FERR325T3 PO (12:01)
[2023-01-26] MEDS ORDERED: HOME MED LIST COMPLETE! XX SCH (12:05)
[2023-01-26] MEDS ORDERED: OXYTOCIN DRIP 30 UNITS in IV 1 EA IV PRN ×4 (12:10)
[2023-01-26] MEDS ORDERED: CARBOPROST TROMETHAMINE 250 MCG/ML AMP IM PRN (12:10)
[2023-01-26] MEDS ORDERED: METHYLERGONOVINE MALEATE 0.2MG/ML 1ML VIAL IM PRN (12:10)
[2023-01-26] MEDS ORDERED: LIDOCAINE 1% MDV 20ML VIAL INFIL PRN (12:10)
[2023-01-26] MEDS ORDERED: TRANEXAMIC ACID INJection 1,000 MG in NS 100 ML IV PRN (12:10)
[2023-01-26] MEDS ORDERED: OXYTOCIN INJ 10UNITS/ML 1ML VIAL IM PRN (12:10)
[2023-01-26] MEDS: miSOPROStol 50MCG 1/2 TABLET PO SCH ×2 (13:04→17:10)
[2023-01-26 13:18] LABS: HEMOGLOBIN 8.7 g/dl (12.0-15.5); MEAN CORPUSCULAR HEMOGLOBIN 26.4 pg (27.0-33.0); MEAN CORPUSCULAR HGB CONC 32.2 g/dl (32.0-36.5); MEAN CORPUSCULAR VOLUME 81.8 fl (80.0-96.0); PLATELET COUNT, AUTOMATED 315 10^3/uL (150-450); WHITE BLOOD COUNT 8.3 10^3/uL (4.0-10.0)
[2023-01-26] MEDS ORDERED: OXYTOCIN DRIP 30 UNITS in IV 1 EA IV SCH (21:00)
[2023-01-26] MEDS: LR 1,000 ML IV SCH ×2 (21:10→23:48)
[2023-01-26] MEDS ORDERED: NALOXONE INJ 0.4MG/1ML VIAL IV PRN (23:10)
[2023-01-26] MEDS ORDERED: LR 500 ML IV PRN (23:10)
[2023-01-26] MEDS ORDERED: ePHEDrine SULFATE 25 MG/5 ML(5MG/ML) SYRINGE IVP PRN (23:10)
[2023-01-26] MEDS ORDERED: diphenhydrAMINE 50MG/ML VIAL IV PRN (23:10)
[2023-01-26] MEDS ORDERED: ONDANSETRON 4MG 2ML VIAL IV PRN (23:10)
[2023-01-26] MEDS ORDERED: EPIDURAL/PCA KEYS XX PRN (23:10)
[2023-01-26] MEDS ORDERED: FENTANYL/ROPIVACAINE/NACL BAG 100 ML EPIDURAL SCH (23:10)
[2023-01-27] VITALS (21 sets, daily range): BP systolic 104–142; BP diastolic 54–93
[2023-01-27] MEDS ORDERED: IBUPROFEN 600MG TAB PO PRN (04:20)
[2023-01-27] MEDS ORDERED: RHOGAM 300MCG (1500IU) INJ IM SCH (04:20)
[2023-01-27] MEDS ORDERED: DOCUSATE SODIUM 100MG CAPSULE PO PRN (04:20)
[2023-01-27] MEDS ORDERED: METHYLERGONOVINE MALEATE 0.2 MG TAB PO PRN (04:20)
[2023-01-27] MEDS ORDERED: ACETAMINOPHEN 500 MG TAB PO PRN (04:20)
[2023-01-27] MEDS ORDERED: DIBUCAINE 1% OINTMENT 30GM TOP PRN (04:20)
[2023-01-27] MEDS ORDERED: ACETAMINOPHEN TAB 650MG DOSE (2X325MG) PO PRN (04:20)
[2023-01-27] MEDS: IBUPROFEN 800 MG TAB PO PRN ×2 (08:27→22:20)
[2023-01-27] MEDS: PRENATAL VITAMINS CHEWABLE TABLET PO SCH (08:27)
[2023-01-28 06:25] VITALS: BP 98/54
[2023-01-28] MEDS: PRENATAL VITAMINS CHEWABLE TABLET PO SCH (08:35)
[2023-01-29] MEDS ORDERED: MEASLES,MUMPS,RUBELLA VACCINE INJ (MMR-II) SC.IMMUN ONE (09:00)
== END 2023-01-28 18:25 | disposition home or self-care (01) | DRG 560 ==
LOC: M LDI 11:31 → M OBS 01-27 06:15
PROVIDERS: ADMIT Advanced Practice Midwife; ATTEND Advanced Practice Midwife
PROC: 3E0P7GC Introduction of Other Therapeutic Substance into Female Reproductive, Via Natural or Artificial Opening (ICD-10-PCS; 2023-01-26)
PROC: 10E0XZZ Delivery of Products of Conception, External Approach (ICD-10-PCS; principal; 2023-01-27)
PROC: 10907ZC Drainage of Amniotic Fluid, Therapeutic from Products of Conception, Via Natural or Artificial Opening (ICD-10-PCS; 2023-01-27)
DX: O48.0 Post-term pregnancy (principal); O99.344 Other mental disorders complicating childbirth; F41.1 Generalized anxiety disorder; Z3A.40 40 weeks gestation of pregnancy; Z79.899 Other long term (current) drug therapy; O69.81X0 Labor and delivery complicated by cord around neck, without compression, not applicable or unspecified; Z37.0 Single live birth

== ENCOUNTER 2023-05-16 13:06 | Emergency (ER) | payer OTHER, MEDICAID ==
[~2023-05-16] VITALS: Ht 157.5 cm; Wt 58.8 kg
[~2023-05-16 13:06] MED LIST changes: +FERR325T3 PO; +LEXA1TAB PO
[2023-05-16 15:58] VITALS: BP 131/74; TEMP 97.4; O2SAT 100
== END 2023-05-16 19:36 | disposition left against medical advice (07) ==
LOC: M ED 13:06 → EDBD 13:06 → M ED 19:36
DX: Z53.21 Procedure and treatment not carried out due to patient leaving prior to being seen by health care provider (principal)

== ENCOUNTER → 2023-06-22 | Outpatient (REF) | payer OTHER, MEDICAID | LOC: M SFHCWAGY 13:09 | PROVIDERS: ATTEND Nurse Practitioner Family | DX: Z12.4 Encounter for screening for malignant neoplasm of cervix (principal) ==

== ENCOUNTER 2025-08-27 20:07 | Emergency (ER) | payer OTHER ==
[~2025-08-27] VITALS: Ht 162.6 cm; Wt 68.0 kg
[~2025-08-27 20:07] MED LIST changes: -IBUP-1022 PO; +IBUP600T42 PO
[2025-08-27 20:58] LABS: BASO # 0.1 10^3/uL (0.0-0.2); BASO % 0.7 % (0.0-1.0); EOS # 0.7 10^3/uL (0.0-0.5); EOS % 9.5 % (0.0-3.0); LYMPH # 1.7 10^3/uL (1.5-5.0); LYMPH % 23.2 % (24.0-44.0); MONO # 0.6 10^3/uL (0.0-0.8); MONO % 7.8 % (2.0-8.0); NEUTROPHILS # 4.3 10^3/uL (1.5-8.5); NEUTROPHILS % 58.4 % (36.0-66.0); PLATELET COUNT, AUTOMATED 248 10^3/uL (150-450)
[2025-08-27 21:32] LABS: ALT/SGPT 13 U/L (7.0-40); AST/SGOT 23 U/L (<34); CALCIUM LEVEL 9.0 MG/DL (8.5-10.1); CARBON DIOXIDE LEVEL 24 MMOL/L (20-31); CHLORIDE LEVEL 107 MMOL/L (98-107); CREATININE FOR GFR 0.70 MG/DL (0.55-1.30); GLOMERULAR FILTRATION RATE > 90.0 (>60); MAGNESIUM LEVEL 1.9 MG/DL (1.8-2.4); PHOSPHORUS LEVEL 2.9 MG/DL (2.5-4.9); POTASSIUM SERUM 3.8 MMOL/L (3.5-5.1); SODIUM LEVEL 141 MMOL/L (136-145)
[2025-08-27 22:52] LABS: KETONE, URINE AUTO RFX TRACE mg/dL (NEGATIVE); LEUKOCYTE ESTERASE UR AUTO RFX NEGATIVE (NEGATIVE); NITRITE, URINE AUTO RFX NEGATIVE (NEGATIVE); RBC, URINE AUTO RFX 0 /HPF (0-3); SQUAM EPITHELIAL CELL UR AURFX 0 /HPF (0-6); WBC, URINE AUTO RFX 0 /HPF (0-3)
[2025-08-27 23:18] LABS: VENOUS BASE EXCESS -1.9 (-2.0-2.0); VENOUS HCO3 23.2 MMOL/L (23.0-27.0); VENOUS O2 SATURATION 89.0 % (60.0-80.0); VENOUS PARTIAL PRESSURE CO2 40.7 mmHg (38.0-50.0); VENOUS PARTIAL PRESSURE O2 58.2 mmHg (30.0-50.0); VENOUS PH 7.373 UNITS (7.330-7.430); VENOUS STANDARD HCO3 22.7 MMOL/L; VENOUS TOTAL CO2 24.4 MMOL/L (24.0-28.0)
[2025-08-28 00:36] VITALS: BP 136/73; TEMP 98.3; O2SAT 97
== END 2025-08-28 00:45 | disposition home or self-care (01) ==
LOC: M ED 20:07
DX: F44.5 Conversion disorder with seizures or convulsions (principal); Z79.899 Other long term (current) drug therapy; Z79.810 Long term (current) use of selective estrogen receptor modulators (SERMs)

== ENCOUNTER 2025-09-22 19:40 | Emergency (ER) | payer OTHER ==
[~2025-09-22] VITALS: Ht 160 cm; Wt 63.6 kg
[2025-09-22 22:00] VITALS: BP 140/79; TEMP 96.9; O2SAT 98
== END 2025-09-22 22:03 | disposition home or self-care (01) ==
LOC: M ED 19:40
DX: F43.0 Acute stress reaction (principal); F17.290 Nicotine dependence, other tobacco product, uncomplicated; F19.10 Other psychoactive substance abuse, uncomplicated; F10.10 Alcohol abuse, uncomplicated